=== PATIENT | female | born 1990 | race Caucasian/White ===

== ENCOUNTER 2023-09-17 11:12 | Emergency (ER) | payer SELFPAY ==
[2023-09-17 11:15] VITALS: BP 155/115
[2023-09-17 12:10] LABS: % Basophils 0.7 % (0-2); % Eosinophils 3.3 % (0-6); % Immature Granulocytes 1.1 % (0-0.5); % Lymphocytes 20.9 % (20.5-51.1); % Monocytes 6.9 % (1.7-9.3); % Neutrophils 67.1 % (42.2-75.2); Absolute Basophils 0.1 10^3/uL (0-0.2); Absolute Eosinophils 0.4 10^3/uL (0-0.7); Absolute Immature Granulocytes 0.1 10^3/uL (0-0.05); Absolute Lymphocytes 2.8 10^3/uL (1.2-3.4); Absolute Monocytes 0.9 10^3/uL (0.1-0.6); Absolute Neutrophils 8.9 10^3/uL (1.4-6.5); Hematocrit 42.3 % (37.0-47.0); Hemoglobin 14.2 g/dL (12.0-16.0); Mean Corp Hgb Conc. 33.6 g/dL (33.0-37.0); Mean Corpuscular Hgb 29.3 pg (27.0-31.0); Mean Corpuscular Volume 87.2 fL (81.0-99.0); Mean Platelet Volume 9.8 fL (7.4-10.4); Nucleated Red Blood Cells % 0 %; Platelet Count 253 10^3/uL (130-400); Red Blood Cell Count 4.85 10^6/uL (4.20-5.40); White Blood Cell Count 13.3 10^3/uL (4.8-10.8)
[2023-09-17 12:19] LABS: ALT (SGPT) 34 U/L (0-35); AST (SGOT) 28 U/L (14-36); Albumin 4.1 g/dl (3.5-5.0); Alkaline Phosphatase 119 U/L (38-126); Blood Urea Nitrogen 14 mg/dl (7-17); Calcium 9.3 mg/dl (8.4-10.2); Carbon Dioxide 32 mmol/L (22-30); Chloride 100 mmol/L (98-107); Glucose 247 mg/dl (70-99); Potassium 4.5 mmol/L (3.5-5.1); Sodium 137 mmol/L (135-145); Total Bilirubin 0.4 mg/dl (0.2-1.3); Total Protein 7.3 g/dl (6.3-8.2); eGFR > 60.00
--- NOTE | 2023-09-17 12:45 | ED.GENMED ---
History of Present Illness
General
Chief Complaint: Throat Problem
Time Seen by Provider: 09/17/23 12:20
History of Present Illness
History of Present Illness:
33-year-old female presents to the emergency department for evaluation of persistent daily vomiting for the past 2 months with a worsening sensation of 'choking' over the past week. She was evaluated [facility] 1 week ago for the symptoms,
had lab work that was unremarkable and a chest x-ray that was negative. She was prescribed Maalox and famotidine but feels that these are not helping her symptoms. Denies any dysphagia or difficulty swallowing foods.
Past History
Past History
ED Past Medical History: Asthma, NIDDM (Diet-controlled diabetes) and Other (Colitis, kidney stones, PCOS)
ED Past Surgical History: Cholecystectomy and Tonsilectomy
Social History
Tobacco: Non-smoker
Alcohol: None
Drug: None
Personal:
Living: with family
Employment: Employed
Family History
Family History: Other (Noncontributory)
Review of Systems
Review of Systems
Allergies reviewed?: Yes
All Other Systems: ROS reviewed and negative except as documented in HPI and ROS
Phy Exam
Physical Exam
Physical Exam:
GEN: Well appearing, NAD, WDWN
HEENT: Oral mucosa moist, no scleral icterus. Status post tonsillectomy, no oropharyngeal erythema or edema
Cardiac: Regular rate
Lung: No respiratory distress, no tachypnea
MSK: No gross deformity or injuries
Skin: Good color, no pallor or jaundice, no rashes
Neuro: AO x3, moves all extremities freely
Psych: Calm, cooperative
Course
Orders/Labs/Results
Orders:
Orders
09/17/23 11:50
Complete Blood Count/With Diff Urgent
Comprehensive Metabolic Panel Urgent
09/17/23 12:38
Sucralfate Suspension [Carafate Suspension] 1 gm PO NOW STA
09/17/23 14:06
CR Soft Tissue Neck Urgent
Comment:
Reason For Exam: throat swelling
Abnormal Lab Results
09/17/23
11:50
WBC 13.3 H 10^3/uL
(4.8-10.8)
Abs Immat Gran (auto) 0.1 H 10^3/uL
(0-0.05)
Absolute Neuts (auto) 8.9 H 10^3/uL
(1.4-6.5)
Absolute Monos (auto) 0.9 H 10^3/uL
(0.1-0.6)
Immature Gran % 1.1 H %
(0-0.5)
Carbon Dioxide 32 H mmol/L
(22-30)
Glucose 247 H mg/dl
(70-99)
09/17/23 11:50
09/17/23 11:50
Vital Signs
Initial and Last Documented VS:
Initial Vital Signs
Temp Pulse Resp BP Pulse Ox
98.1 F 112 16 155/115 99
09/17/23 11:15 09/17/23 11:15 09/17/23 11:15 09/17/23 11:15 09/17/23 11:15
Last Documented Vital Signs
Temp Pulse Resp BP Pulse Ox
98.1 F 99 18 137/86 99
09/17/23 11:15 09/17/23 14:48 09/17/23 14:48 09/17/23 14:48 09/17/23 14:48
MDM/Problems Addressed
MDM/Problems Addressed:
No evidence on exam of immediate airway compromise, her phonation is normal thus do not suspect retropharyngeal abscess particularly ongoing for the past week. Given that she reports persistent emesis I suspect she may have esophagitis from
vomiting and GERD. Will start her on high-dose PPIs and recommend outpatient GI follow-up
*Critical Care Note
Total Time (30-74mins, 75-104mins- exclusive of procedures): Not Applicable
ED Attending Note
-
Portions of this chart may have been created with voice recognition software.� Occasional wrong word or��sound alike� substitutions may have occurred due to the inherent limitations of voice recognition software.
Discharge Plan
Departure
Patient Disposition: Home (Routine Discharge)
Date of Disposition: 09/17/23
Time of Disposition: 14:40
Patient with high blood pressure during this ER visit?: No
Discharge Problem:
Esophagitis
Instructions: Esophagitis
Prescriptions:
New
pantoprazole 40 mg tablet,delayed release (DR/EC)
40 mg PO BID 14 Days Qty: 28 0RF
sucralfate [Carafate] 1 gram tablet
1 g PO ACHS Qty: 60 0RF
No Action
oxycodone 5 MG tablet
5 mg PO Q6H PRN (Reason: pain) Qty: 20 0RF
ondansetron [Zofran ODT] 8 MG tablet,disintegrating
8 mg PO TID PRN (Reason: nausea/vomiting) Qty: 20 0RF
ondansetron [Zofran ODT] 8 MG tablet,disintegrating
8 mg PO TID PRN (Reason: nausea/vomiting) Qty: 20 0RF
Referrals:
Isabel Humphries MD [Active] -
Alphonse Meeks MD [Family Provider] -
Interventions
Interventions:
*Risk Screen - Suicide Last Done: 09/17/23 11:15
*General Assessment Last Done: 09/17/23 11:15
*Neglect/Abuse Screening Last Done: 09/17/23 11:15
*Nursing Disposition Last Done: 09/17/23 14:48
ED-EENT Assessment Last Done: 09/17/23 11:41
ED- Pulmonary Assessment Last Done: 09/17/23 11:41
Discharge Date and Time
Discharge Date/Time: 09/17/23 14:48
Print Language: AZERI
[2023-09-17] MEDS: CARAFATE SUSPENSION 1 GM PO (12:55)
[2023-09-17 14:48] VITALS: BP 137/86
== END 2023-09-17 14:48 | disposition home or self-care (01) ==
LOC: EMR 11:12
PROVIDERS: EMERGENCY PHYSICIAN Emergency Medicine; FAMILY PHYSICIAN Family Medicine
DX: K20.90 Esophagitis, unspecified without bleeding (principal); R11.15 Cyclical vomiting syndrome unrelated to migraine; J45.909 Unspecified asthma, uncomplicated; E11.9 Type 2 diabetes mellitus without complications; K52.9 Noninfective gastroenteritis and colitis, unspecified; Z87.442 Personal history of urinary calculi; Z90.49 Acquired absence of other specified parts of digestive tract; Z88.1 Allergy status to other antibiotic agents; Z88.0 Allergy status to penicillin; Z88.8 Allergy status to other drugs, medicaments and biological substances
CPT/HCPCS: 99283; 70360; 80053; 85025